=== PATIENT | male | born 1945 | race Caucasian/White ===

== ENCOUNTER → 2016-12-08 | Outpatient (CLI) | payer OTHER ==
[~2016-12-08] MED LIST: ATRV10T; CATHETER FLUSH 10 ML SYR IV PRN; ENLP10T; LNS30CCR; METO50TA7
--- NOTE | 2016-12-08 20:38 | Diagnostic Imaging Report ---
Whole body bone scan. Technique: After the intravenous administration of 25.4 mCi of Technetium 99m MDP, whole body delayed phase bone scan images were obtained with lateral views of the head and neck and the chest regions. INDICATION: Prostate cancer. FINDINGS: There is mild increased radiotracer uptake seen at the junction between T9 and T10 vertebral bodies which may relate to degenerative changes. Minimal focus of increased uptake is seen in the posterolateral aspect of the left 10th rib with no definitive correlate on CT scan of the abdomen and pelvis. No intense lesions particularly within the axial skeleton seen to suggest metastatic disease. Urinary tract excretion is noted. Degenerative pattern in other joints more prominent in the left knee and both shoulders also noted. IMPRESSION: Mild increased activity seen in the lower thoracic spine and posterolateral aspect of the left 10th rib is favored to be degenerative and probably injury related for the rib minimal solitary activity. No definite evidence of osseous metastasis. Followup study is recommended. Dictated by: Dictated on workstation # [id number]
== END ==
LOC: CARD 11:57
PROVIDERS: ATTEND Urology
DX: C61 Malignant neoplasm of prostate (principal)
CPT/HCPCS: 78306

== ENCOUNTER → 2016-12-14 | Outpatient (CLI) | payer OTHER ==
[~2016-12-14] MED LIST changes: -CATHETER FLUSH 10 ML SYR IV PRN; +GADOXETATE 2.5 MMOL/10 ML (EOVIST) IV ONE
--- NOTE | 2016-12-14 12:09 | Diagnostic Imaging Report ---
PROCEDURE: MR imaging abdomen with and without contrast. TECHNIQUE: Multiplanar, multisequence MR imaging of the abdomen was performed with and without contrast. INDICATION: History of prostate cancer. COMPARISON: Correlation with CT from 12/08/2016. Multiple lesions seen on CT scan in the liver. CONTRAST: 7 mL of Eovist is administered intravenously. FINDINGS: There are multiple hepatic lesions with bright T2 signal and lobulated margins seen in the right and left hepatic lobes, generally associated with nonspecific enhancement pattern. These lesions are favored to be related to hemangiomas although the typical enhancement pattern is not demonstrated. The largest lesion is 2.3 cm in size in the lateral aspect of the right hepatic lobe. In the inferior aspect of the lateral segments of the left hepatic lobe, there is a nonenhancing lesion measuring 7 mm in size and is likely a cyst. No intra or extrahepatic biliary dilatation. The gallbladder demonstrates no stones. The pancreas appears unremarkable. The abdominal aorta is normal in caliber. No paraaortic significantly enlarged lymph nodes are seen. The adrenal glands appear unremarkable. The kidneys demonstrate minimally complicated dominant cyst exophytic from the posterior aspect of the left kidney measuring 3 cm with hyperintense debris on precontrast T1-weighted images suggestive of a tiny hemorrhagic or proteinaceous content. The bone marrow signal within the lumbar spine appears unremarkable. IMPRESSION: Multiple hepatic lesions with bright T2 signal and nonspecific enhancement pattern is favored to relate to atypical hemangiomas. Given the atypical appearance and presence of primary history of prostate cancer, followup CT scan in 4-6 months is recommended to ensure stability. Dictated by: Dictated on workstation # [id number]
== END ==
LOC: RAD 09:47
PROVIDERS: ATTEND Urology
DX: K76.9 Liver disease, unspecified (principal); C61 Malignant neoplasm of prostate
CPT/HCPCS: 74183

== ENCOUNTER 2017-02-08 09:02 | Outpatient (CLI) | payer OTHER, MEDICARE ==
[~2017-02-08] VITALS: Ht 172.7 cm; Wt 83.0 kg
[~2017-02-08 09:02] MED LIST changes: -ATRV10T; +ATRV10T PO; -GADOXETATE 2.5 MMOL/10 ML (EOVIST) IV ONE; -LNS30CCR; +LNS30CCR PO; -METO50TA7; +METO50TA7 PO
[2017-02-08 09:17] VITALS: BP 132/78
[2017-02-08] MEDS ORDERED: NAPR500T8 PO (09:33)
[2017-02-08] MEDS ORDERED: AMLO5TAB2 PO (10:31)
[2017-02-08] MEDS ORDERED: IRBE300T18 PO (10:31)
[2017-02-08] MEDS ORDERED: METF500T4 PO (10:31)
[2017-02-08] MEDS ORDERED: HYDR12.56 PO (10:31)
== END 2017-02-08 09:50 | disposition home or self-care (01) ==
LOC: PREOP 09:02
PROVIDERS: ATTEND Urology
DX: Z01.818 Encounter for other preprocedural examination (principal); C61 Malignant neoplasm of prostate
CPT/HCPCS: 87081; 93005

== ENCOUNTER 2017-02-15 06:17 | Inpatient (IN) | payer OTHER, MEDICARE ==
[~2017-02-15] VITALS: Ht 172.7 cm; Wt 83.0 kg
[~2017-02-15 06:17] MED LIST changes: +AMLO5TAB2 PO; +HYDR12.56 PO; +IRBE300T18 PO; +METF500T4 PO; +NAPR500T8 PO
[2017-02-15] MEDS ORDERED: ceFAZolin 2 GM/50 ML NS 50 ML ONE (06:20)
[2017-02-15] MEDS ORDERED: CATHETER FLUSH 10 ML SYR IV PRN (06:30)
[2017-02-15] MEDS ORDERED: ceFAZolin 2 GM/NS 50 ML IV ONE (06:30)
[2017-02-15] MEDS ORDERED: proPOfol 200 MG/20 ML (DIPRIVAN) VIAL IV ONE (06:39)
[2017-02-15] MEDS ORDERED: DEXAMETHASONE PF 10 MG/ML (DECADRON) VIAL ONE (06:39)
[2017-02-15] MEDS ORDERED: ROCURONIUM 50 MG/5 ML (ZEMURON) VIAL IV ONE ×3 (06:39→11:37)
[2017-02-15] MEDS ORDERED: LIDOCAINE 2% 20 ML (XYLOCAINE) VIAL ONE (06:39)
[2017-02-15] MEDS ORDERED: LACTATED RINGERS 1,000 ML IV ONE (06:39)
[2017-02-15] MEDS ORDERED: ONDANSETRON 4 MG/2 ML (SDV) Z0FRAN ONE (06:39)
[2017-02-15] MEDS ORDERED: SEVOFLURANE (ULTANE) 15 ML INHAL SOLN ONE ×18 (06:39→11:37)
[2017-02-15] MEDS ORDERED: fentaNYL INJECTION 100 MCG/2 ML AMP ONE ×3 (06:39→11:58)
[2017-02-15] MEDS ORDERED: MIDAZOLAM 2 MG/2 ML (VERSED) VIAL ONE (06:39)
[2017-02-15] MEDS ORDERED: LACTATED RINGERS 1,000 ML IV PRN (06:46)
[2017-02-15 07:05] VITALS: BP 133/84
[2017-02-15] MEDS ORDERED: ceFAZolin 1,000 MG (ANCEF) VIAL ONE (11:43)
[2017-02-15] MEDS ORDERED: GLYCOPYRROLATE 0.2 MG/ML (ROBINUL) 2 ML VIAL ONE (11:44)
[2017-02-15] MEDS ORDERED: NEOSTIGMINE (BLOXIVERZ ) 1 MG/1ML 10 ML VIAL ONE (11:44)
[2017-02-15] MEDS ORDERED: ceFAZolin 1,000 MG (ANCEF) VIAL IV ONE (12:00)
[2017-02-15] MEDS ORDERED: ANTACID SUSP 30 ML UDC (MYLANTA) PO PRN (12:15)
[2017-02-15] MEDS ORDERED: ONDANSETRON 4 MG/2 ML (SDV) Z0FRAN IV PRN (12:15)
[2017-02-15] MEDS ORDERED: HYDROcodone/APAP 7.5 MG/325 MG (LORTAB, LORCET PLUS) TABLET PO PRN (12:15)
[2017-02-15] MEDS ORDERED: SIMETHICONE 80 MG (MYLICON) CHEW PO PRN (12:15)
[2017-02-15] MEDS ORDERED: DOCUSATE SODIUM 100 MG (COLACE) CAP PO PRN (12:15)
[2017-02-15] MEDS ORDERED: ZOLPIDEM 5 MG (AMBIEN) TAB PO PRN (12:15)
[2017-02-15] MEDS ORDERED: KETOROLAC 30 MG/ML VIAL IV PRN (12:15)
[2017-02-15] MEDS ORDERED: morphine INJ 10 MG/ML 1ML (SYR OR VIAL) IVP PRN (12:30)
[2017-02-15] MEDS ORDERED: HYDROmorphone (DILAUDID) 2 MG/ML VIAL IVP PRN (12:30)
[2017-02-15] MEDS ORDERED: ONDANSETRON 4 MG/2 ML (SDV) Z0FRAN IVP PRN (12:30)
[2017-02-15] MEDS: LACTATED RINGERS 1,000 ML IV SCH ×2 (12:38→15:35)
[2017-02-15 13:20] VITALS: BP 175/92
[2017-02-15] MEDS ORDERED: ASPI-983 PO (14:13)
[2017-02-15] MEDS ORDERED: ERGO50006 PO (14:13)
[2017-02-15] MEDS ORDERED: HYDR-3812 PO (14:13)
[2017-02-15] MEDS ORDERED: NAPR500T3 PO (14:13)
[2017-02-15] MEDS ORDERED: ATOR10TA66 PO (14:13)
[2017-02-15] MEDS ORDERED: HYDR12.5 PO (14:13)
[2017-02-15 16:00] VITALS: BP 145/79
[2017-02-15 20:00] VITALS: BP 139/79
[2017-02-16 00:35] VITALS: BP 120/67
[2017-02-16] MEDS: LACTATED RINGERS 1,000 ML IV SCH (03:31)
[2017-02-16 03:50] VITALS: BP 117/66
[2017-02-16] MEDS ORDERED: IBUPROFEN 600 MG (MOTRIN) TAB PO PRN (05:00)
[2017-02-16 07:34] VITALS: BP 130/70
--- NOTE | 2017-02-16 10:31 | Discharge Inst-Urology ---
Discharge Inst-Urology Discharge Medications New, Converted, or Re-newed RX: RX given to Patient/Fam Patient Instructions/Follow Up Plan DC hemovac then discharge patient with Bryant and leg bag day time and large bag night time with instructions Keep bowels soft and moving Stay off ASA Showers, no bath Office Tuesday 02/27 to DC bryant and 2 weeks later to see me, rest till then OTC Neosporin ointment around meatus and bryant once or twice a day Increase oral fluids for 48 hours and then as needed. Diet and Activity as tolerated. If questions or concerns contact your physician Or seek help at emergency department. ODALYS STEELE MD Feb 16, 2017 10:30 am
--- NOTE | 2017-02-16 16:11 | OPERATIVE REPORT ---
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 PREOPERATIVE DIAGNOSIS: Stage T1c [place] 8, 9 and 10 adenocarcinoma of the prostate. PROCEDURE: Robot assisted laparoscopic prostatectomy with a left sided nerve spearing and right sided wide dissection and a bilateral pelvic lymph node dissection. SURGEON: Dr. Melania Roach FLOWER GRADER SURGEON: El (s/l Panfilly) ANESTHESIA: General endotracheal anesthesia. SPECIMENS: 1. Prostate. 2. Seminal vesicles. 3. Right pelvic lymph nodes. INDICATIONS TO THE OPERATIVE PROCEDURE: Mr. Denise is a very pleasant 71 year-old gentleman referred by Dr. France for prostate cancer. He had been followed by quite some time for hypogonadism with Dr. France and was found to have an elevated PSA of 6.9 at which time he underwent a biopsy. That revealed a [place] 8, 9 and 10 prostate cancer all on the right, for a total of 6 cores positive. Left side was all negative. I had a long counseling with he and his and told him that staging showed that his CT scan and bone scan were negative. The man has mild erectile dysfunction and does not require PD5 inhibitors and he wanted to have a unilateral nerve sparing done. We went through the risks and benefits, advantages and disadvantages and he signed and informed consent. DESCRIPTION: After this man was prepped and draped in the usual sterile fashion, placed in the low lithotomy position, padded throughout on his elbows, hands and legs and had SCDs applied and IV antibiotics administered. We placed an 18 [place] tip catheter with 2-0 Vicryl tied on the end of it into his bladder. We then marked out our port sites in the usual fashion lifting up from the abdominal wall with towel clamps on either side of the supraumbilical region, made a small punch in the midline and introduced a Veress needle into the abdomen. After ensuring we were intraperitoneal using a drip test, we completed insufflation with 15 cm of pressure and then extended our incision in the midline and placed a nonbladed 10/12 mm trocar into the abdomen. Through this port, we examined the intraabdominal contents and I found adhesions which were quite significant from his cecum and from his sigmoid area and that appeared to be from his diverticular disease of the colon. After I placed the rest of the trocars in the usual fashion, I put him in a steep Trendelenburg position and docked the robot. I started with scissors in my left hand and the right hand with the precise instrument, taking down adhesions for about the first 14 to 15 minutes. I then went across the ____ (s/l urakial) rim and followed the medial umbilical ligaments back to the vas deferens. I harvested a piece of the vas deferens to bolster the bladder neck anastomosis. I then did a lymph node dissection only on the right side simply because this gentleman had had no cancer on the left. I split the tissue of the external iliac vein down to the pubic symphysis and back up to the crossing of the ureter. This man was thin and had very little lymph node tissue. I looked all up and down the hypogastric area under the obturator all the way up to the common iliac and really only found one packet of amrit tissue which I took out and used cautery to cauterize the small vessels and lymphatics and sent those off for frozen section and returned as negative. I did note that he had a direct inguinal hernia on the right hand side that I told the family about incase he became symptomatic in any way. They stated he was not symptomatic prior to the operation and never told us that he was. I verified that the nerve vessels were uninjured and the final pathology came back on frozen section, is negative. I then incised the endopelvic fascia and took down puboprostatic ligaments and used the endovascular stapler to staple across the dorsal venous complex. I then switched to a 30 degree down orientation of the lens and opened up between the base of the prostate and the bladder neck and once I saw the Olivier catheter, I used a Jovon-Stevenson to lift up on the Vicryl suture and put the Olivier catheter on penile traction. I then went across the posterior bladder neck to ensure the ureters were uninjured and completed the prostate from the base of the bladder. In doing so, I then exposed the seminal vesicles and ampulla. I dissected out the entire seminal vesicles bilaterally and transected the vas deferens 1 cm proximal to their junction with the prostate. I incised an fascia on the right hand side down to perirectal fat and dropped the rectum off all the way to the apex of the prostate and really encountered some adhesions but it was not very stuck to the rectum. On the contralateral side I used a hemolock clip to clip the vascular pedicle and then transect it and then did released the Olivier catheter and did a high anterior release on the endopelvic fascia, dissected off the intravascular veil from the anterior surface of the prostate all the way to the 6:00 position on the underside. Once I reached the apex of the prostate, I went to the contralateral side and on that vascular pedicle we used an endovascular stapler to staple the lateral pedicle and that took us about midway up the prostate at which time I continued to dissect down on the perirectal fat all the way to the apex of the prostate. So we did a very wide dissection on the right and on the left we did a nerve sparing. Once I had reached the apex, I switched back to a 0 degree lens. I then replaced the Olivier catheter I had recently taken out and did a circumferential dissection of the apex and the prostate making sure that I dissected out the longest urethral stump possible. I then removed the Olivier catheter, transected the urethra, inspected the prostate, found that we had a very clean dissection, no evidence of entrance into the capsule. The prostate was then placed in an endocatch bag for later removal. I then irrigated the pelvis and saw no significant bleeding. Introduced into the abdomen two 8 1/2 inch pieces of 2-0 Monocryl tied together and sutured across the piece of the vas deferens. Starting at the 6:00 position of the bladder neck and suturing the same position on the urethral stump, I did a running suture on the left 6-12 blue suture and on the right 6-12 clear suture. I then transition my stitch across the bladder neck and the 12:00 position prior to finishing the running suture. Removed both needles from the abdomen, ensured we had an accurate sponge and needle count and then finished my sewing with a number 20 Mont[place]gr[place] Silastic catheter with 10 mL placed in the balloon. I then tied the sutures water tight, irrigated the bladder until clear and saw no leak. I then moved the endocatch bag in the midline for later removal. Placed a 19 Mont[place]gr[place] Eric drain next to the anastomosis and brought it out the 3rd arm site in the left lower quadrant and sutured it in place with a 2-0 Silk interrupted suture. We undocked the robot and removed all port sites, extended our incision in the midline and removed the prostate. I grasped the anterior rectus fascia, closed with 4 sutures of interrupted number 1 Vicryl in a figure of eight fashion. After ensuring we did not grab any bowel underneath we tied down the abdominal wall sutures water tight, irrigated all wounds and closed the skin using four 4-0 undyed Monocryl in a running subcuticular fashion. I placed Dermabond on all wounds, extubated the patient, transporting him to recovery in excellent condition. Blood loss was 150 mL. Job ID: [id number] Dictated Date: 02/15/2017 12:22:34 Financial Services Internship Date: 02/16/2017 13:51:31 / sunny
== END 2017-02-16 11:15 | disposition home or self-care (01) | DRG 708 ==
LOC: 4TH 06:17 → SURG 06:18 → 4TH 13:25
PROVIDERS: ADMIT Urology; ATTEND Urology
PROC: 07TC4ZZ Resection of Pelvis Lymphatic, Percutaneous Endoscopic Approach (ICD-10-PCS; 2017-02-15)
PROC: 0VT04ZZ Resection of Prostate, Percutaneous Endoscopic Approach (ICD-10-PCS; principal; 2017-02-15 07:34)
DX: C61 Malignant neoplasm of prostate (principal); E29.1 Testicular hypofunction; I10 Essential (primary) hypertension; E11.9 Type 2 diabetes mellitus without complications
CPT/HCPCS: 36415; 82962; 86850; 86900; 86901; 94664

== ENCOUNTER → 2017-05-08 | Outpatient (CLI) | payer MEDICARE, OTHER ==
[~2017-05-08] MED LIST changes: +ASPI-983 PO; +ATOR10TA66 PO; +BARIUM SUSPENSION 2.1% (VANILLA SILQ) 450 ML PO ONE; +CATHETER FLUSH 10 ML SYR IV PRN; +ERGO50006 PO; +HYDR-3812 PO; +HYDR12.5 PO; +IOHEXOL 350 MG/ML 100 ML (OMNIPAQUE 350) VIAL IV ONE; +NAPR500T3 PO; +NS 100 ML (IVPB) BAG IV ONE
--- NOTE | 2017-05-08 16:59 | Diagnostic Imaging Report ---
PROCEDURE: CT abdomen and pelvis with and without contrast. TECHNIQUE: Precontrast acquisitions were acquired through the abdomen and pelvis. Multiple contiguous axial images were obtained through the abdomen and pelvis after the administration of intravenous contrast. INDICATION: Abdominal pain. History of prostate cancer. Status post surgical resection. 100 mL of Omnipaque 350 is administered intravenously. FINDINGS: The lung bases appear clear. Again seen are multiple hyperenhancing lesions in the liver up to 2.1 cm in the right hepatic lobe inferiorly. This is similar to previous exam of 12/08/2016 with no definite change. As previously indicated on CT and MRI from December, these might relate to hemangiomas. The gallbladder, the spleen, the pancreas, and the adrenal glands appear unremarkable. The kidneys have symmetric enhancement and contrast excretion. Multiple simple appearing cysts are seen. The unenhanced phase demonstrates no urinary tract stones. Calcifications in the pelvis appear to relate to phleboliths. There is evidence of interval prostatectomy. The abdominal aorta is normal in caliber. No para-aortic significantly enlarged lymph node is seen. There is a fluid-attenuation lesion measuring 2.1 x 1.9 cm in the right side of the pelvis along the right external iliac chain. This demonstrates no definite enhancement and is not associated with other lesions along the iliac chain. Postoperative seroma versus necrotic lymph node are possibilities. There is prominent diverticulosis. No diverticulitis. No significant free fluid or fluid collection in the abdomen or pelvis is seen. Tiny fat-containing umbilical hernia is seen. The osseous structures demonstrate prominent degenerative changes in the lower thoracic and in the lower lumbar spine. No sclerotic suspicious lesions are seen to suggest metastatic disease. IMPRESSION: 1. Multiple liver hyperenhancing lesions seen without change from December 2016 are favored to be related to hemangiomas. Continued followup recommended. 2. There is interval prostatectomy. 3. A 2 cm fluid-attenuation lesion in the right side of the pelvis at external iliac lymph node chain location. This could relate to a seroma, based on its density rather than a necrotic lymph node. Correlate clinically and with followup exams. 4. Diverticulosis. No diverticulitis. Dictated by: Dictated on workstation # [id number]
== END ==
LOC: RAD 15:20
PROVIDERS: ATTEND Urology
DX: K76.9 Liver disease, unspecified (principal); K57.30 Diverticulosis of large intestine without perforation or abscess without bleeding; Z90.79 Acquired absence of other genital organ(s)
CPT/HCPCS: 74178

== ENCOUNTER 2017-07-27 08:17 | Outpatient (RCR) | payer MEDICARE, OTHER ==
[~2017-07-27 08:17] MED LIST changes: +ACHD5005 PO; -BARIUM SUSPENSION 2.1% (VANILLA SILQ) 450 ML PO ONE; -CATHETER FLUSH 10 ML SYR IV PRN; -HYDR-3812 PO; -IOHEXOL 350 MG/ML 100 ML (OMNIPAQUE 350) VIAL IV ONE; -NAPR500T3 PO; +NAPR500T4 PO; -NS 100 ML (IVPB) BAG IV ONE
== END 2017-08-06 | disposition home or self-care (01) ==
PROVIDERS: ATTEND Orthopaedic Surgery
DX: Z47.1 Aftercare following joint replacement surgery (principal); Z96.652 Presence of left artificial knee joint

== ENCOUNTER 2017-08-09 08:08 | Outpatient (RCR) | payer MEDICARE, OTHER | END 2017-08-22 11:07 | disposition home or self-care (01) | PROVIDERS: ATTEND Orthopaedic Surgery | DX: Z47.1 Aftercare following joint replacement surgery (principal); Z96.652 Presence of left artificial knee joint ==

== ENCOUNTER 2018-02-28 05:36 | Outpatient (CLI) | payer MEDICARE, OTHER ==
[~2018-02-28] VITALS: Ht 172.7 cm; Wt 80.3 kg
[~2018-02-28 05:36] MED LIST changes: -METF500T4 PO; +METF500T5 PO; +NAPR-915 PO; -NAPR500T4 PO
[2018-02-28] MEDS ORDERED: LANS30CA PO (14:02)
[2018-02-28] MEDS ORDERED: METO-370 PO (14:02)
== END 2018-02-28 14:04 ==
LOC: PREOP 05:36
PROVIDERS: ATTEND Surgery
DX: Z01.818 Encounter for other preprocedural examination (principal); Z12.11 Encounter for screening for malignant neoplasm of colon; K21.9 Gastro-esophageal reflux disease without esophagitis

== ENCOUNTER 2018-03-07 09:30 | Day surgery (SDC) | payer MEDICARE, OTHER ==
[~2018-03-07] VITALS: Ht 172.7 cm; Wt 80.3 kg
[2018-03-07 09:30] VITALS: BP 132/73
[~2018-03-07 09:30] MED LIST changes: +LANS30CA PO; +METO-370 PO
[2018-03-07] MEDS ORDERED: LACTATED RINGERS 1,000 ML IV ONE (09:34)
[2018-03-07] MEDS ORDERED: fentaNYL INJECTION 100 MCG/2 ML AMP ONE ×2 (09:59)
[2018-03-07] MEDS ORDERED: HURRICAINE EXT TUBE (BENZOCAINE) XX PRN (10:00)
[2018-03-07] MEDS ORDERED: LIDOCAINE JELLY 2% (XYLOCAINE) 5 ML TUBE MM PRN (10:00)
[2018-03-07] MEDS ORDERED: MIDAZOLAM 2 MG/2 ML (VERSED) VIAL ONE ×4 (10:00)
[2018-03-07] MEDS: fentaNYL INJECTION 100 MCG/2 ML AMP IVP PRN ×4 (10:05→10:50)
--- NOTE | 2018-03-07 10:06 | Conscious Sedation/ASA ---
Conscious Sedation Pre-Proced Time Reviewed: 09:30 ASA Class: 2 Airway Mallampati Classification: ([place] cliff appropriate class) I. II. III, IV Lungs Heart ASA score ASA 1: a normal healthy patient ASA 2: a patient with a mild systemic disease (mid diabetes, controlled hypertension, obesity ASA 3: a patient with a severe systemic disease that limits activity (angina , COPD, prior Myocardial infarction) ASA 4: a patient with an incapacitating disease that is a constant threat to life (CHF, renal failure) ASA 5: a moribund patient not expected to survive 24 hrs. (ruptured aneurysm) ASA 6: a declared brain patient whose organs are being harvested. For emergent operations, add the letter E after the classification Grade 2 Sedation Plan: Analgesia, Amnesia, Plan communicated to team members, Discussed options with patient/fam, Discussed risks with patient/fam Note The patient is an appropriate candidate to undergo the planned procedure, sedation, and anesthesia. The patient immediately re-assessed prior to indication. LUIS SIMON MD Mar 07, 2018 10:06 am
--- NOTE | 2018-03-07 10:06 | Progress Note-Pre Operative ---
Pre-Operative Progress Note H&P Reviewed The H&P was reviewed, patient examined and no changes noted. Date Seen by Provider: Mar 07, 2018 Time Seen by Provider: :30 Date H&P Reviewed: Mar 07, 2018 Time H&P Reviewed: :30 Pre-Operative Diagnosis: GERD, screening colonoscopy LUIS SIMON MD Mar 07, 2018 10:06 am
[2018-03-07] MEDS ORDERED: LACTATED RINGERS 1,000 ML IV STA (10:09)
[2018-03-07] MEDS: MIDAZOLAM 2 MG/2 ML (VERSED) VIAL IVP PRN ×4 (10:09→10:46)
[2018-03-07] MEDS ORDERED: HYDROcodone/APAP 5 MG/325 MG (LORTAB) TAB PO PRN (10:15)
[2018-03-07] MEDS ORDERED: ACETAMINOPHEN 325 MG TABLET PO PRN (10:15)
[2018-03-07] MEDS ORDERED: morphine INJ 10 MG/ML 1ML (SYR OR VIAL) IV PRN (10:15)
[2018-03-07] MEDS ORDERED: ONDANSETRON 4 MG/2 ML (SDV) Z0FRAN IV PRN (10:15)
--- NOTE | 2018-03-07 11:13 | Progress Note-Post Operative ---
Post-Operative Progess Note Surgeon (s)/Bill Board Poster (s) Surgeon LUIS SIMON MD Bill Board Poster: none Pre-Operative Diagnosis GERD, screening colonoscopy Post-Operative Diagnosis reflux esophagitis(class B), small HH(1.5cm), multiple small gastric fundic polyps(1-3mm). chronic stage 2 ext and int hemorrhoid, moderate sigmoid diverticulosis. Procedure & Operative Findings Date of Procedure 03/07/18 Procedure Performed/Findings EGD with bx. Colonoscopy. Anesthesia Type CS Estimated Blood Loss Estimated blood loss (mL): minimal Specimens/Packing Specimens Removed GE jxn, fundic polyp LUSI SIMON MD Mar 07, 2018 11:13 am
[2018-03-07] MEDS ORDERED: SUCR1TAB36 PO (11:14)
[2018-03-07] MEDS ORDERED: PANT40TA2 PO (11:14)
--- NOTE | 2018-03-07 11:15 | Discharge Inst-Surgical ---
D/C Lap Instructions-KIDO New, Converted, or Re-Newed RX: RX on Chart Follow Up Appt in 3 years Activity as tolerated High Fiber Diet 25g or more per day Avoid Alcohol, Caffeine, Spicy [place] and Acid foods. Drink 64 fluid oz or more of fluids per day. Symptoms to Report: Fever over 101 degree F, Nausea/Vomiting If any problems/questions: Contact your physician or go to Emergency Room LUIS SIMON MD Mar 07, 2018 11:15 am
[2018-03-07 11:30] VITALS: BP 109/65
[2018-03-07 12:00] VITALS: BP 105/71
[2018-03-07 12:30] VITALS: BP 105/71
[2018-03-07 12:45] VITALS: BP 105/71
--- NOTE | 2018-03-07 13:13 | OPERATIVE REPORT ---
DATE OF SERVICE: 03/07/2018 ATTENDING PRIMARY CARE PHYSICIAN: Dr. Powers. PREOPERATIVE DIAGNOSIS: Gastroesophageal reflux disease, screening colonoscopy. POSTOPERATIVE DIAGNOSES: Reflux esophagitis class B, small hiatal hernia approximately 1.5 cm in size. Multiple small fundic polyps none greater than 2 to 3 mm. Chronic stage II external and internal hemorrhoids, moderate sigmoid diverticulosis. PROCEDURES: EGD with biopsy and colonoscopy. SURGEON: Luis Simon MD. ANESTHESIA: Conscious sedation. ESTIMATED BLOOD LOSS: Minimal. FINDINGS: EGD: Reflux esophagitis class B, small hiatal hernia approximately 1.5 cm in size. Multiple small fundic gastric polyps none greater than 3 mm in size. These appear to be most likely secondary to a proton pump inhibitor, acid reduction medication long-term. No ulcers. Pylorus and duodenum appeared normal. No distal obstructions. Colonoscopy: Chronic stage II external and internal hemorrhoids, not actively edematous nor inflamed and no bleeding. Moderate sigmoid diverticulosis. DISPOSITION: The patient tolerated the procedure well. INDICATIONS: The patient is a 72-year-old male with a history of gastroesophageal reflux disease as well as a need for a screening colonoscopy. His last colonoscopy was approximately 10 years ago and he believes that to be normal. He does not report any major issues with diarrhea nor constipation as well as no abdominal pain. He also does not report any family history of colon cancer. He does report for the past 8 to 10 weeks, he has had epigastric burning sensation despite being on Prevacid. He does not report any nausea, vomiting. DESCRIPTION OF PROCEDURE: The patient was brought to the endoscopy suite, laid in the left lateral decubitus position. After adequate IV pain and sedative medications and conscious sedation anesthesia, the mouthpiece was applied. The endoscope was placed through the mouth, visualizing the pharynx and hypopharyngeal region. Vocal cords, epiglottis and vallecula identified and appeared to be normal. The endoscope was then gently intubated at the esophageal opening and esophagus insufflated. The endoscope was then advanced through the first, second and third portion of esophagus at the level of the GE junction, a reflux esophagitis class B identified. There were no ulcers or strictures identified in this region. A biopsy was taken with forceps with visualization of good hemostasis. The endoscope was then advanced into the stomach and endoscope retroflexed visualizing a small hiatal hernia approximately 1.5 cm in size. There were multiple gastric fundic polyps, which were flat and varying in size, approximately 2 to 3 mm; however, none greater than 3 mm. Multiple biopsies were taken of the polyps. These appear to be secondary to chronic PPI acid police reserves commander use. The antrum of the stomach appeared normal with no ulcerations. Pylorus and duodenum appeared normal with no distal obstructions. The endoscope was then slowly withdrawn while taking a second look and suctioning the residual air with no additional findings. The patient tolerated the procedure well. We will recommend the necessary lifestyle and diet accommodation including small and more frequent meals, avoidance of eating at night as well as head elevation while lying supine. He has been taking Prevacid and it appears that he does need this medication for symptomatic relief. We will proceed with a trial of Protonix coupled with Carafate and hopefully if he does become asymptomatic, we will recommend weaning off the PPI acid reducers. We will also await the biopsy results. Under the same conscious sedation anesthesia, we then proceeded with colonoscopy portion of the procedure. A digital rectal examination was performed, which revealed chronic stage II external and internal hemorrhoids, not actively edematous nor inflamed with no bleeding. Normal sphincter tone was felt and there were no palpable masses. Prostate gland was palpable and appeared normal. The endoscope was then intubated in the anus and rectum and gently insufflated. The endoscope was then advanced to the valves of Diez at the rectum with no polyps or any neoplasms identified. The endoscope was then advanced through the sigmoid colon where a moderate sigmoid diverticulosis identified. There were no mucosal inflammatory changes to indicate any active diverticulitis. The endoscope was then advanced to the remainder of the descending, transverse and ascending colon to the cecum. These segments were normal. There were no polyps or any neoplasms identified throughout the colon or rectum. The endoscope was then slowly withdrawn while taking a second look and suctioning the residual air with no additional findings. The patient tolerated this portion of the procedure well. We will recommend a high-fiber diet with at least 30 grams of fiber per day as well as copious amounts of water to promote soft stools on a daily basis. He does not need another colonoscopy for another 10 years; however, sooner if he becomes symptomatic. Job ID: [id number] DocumentID: [id number] Dictated Date: 03/07/2018 11:07:17 Parachute Repairer Date: 03/07/2018 13:13:27 Dictated By: LUIS SIMON MD
== END 2018-03-07 12:45 | disposition home or self-care (01) ==
LOC: ENDO 09:30
PROVIDERS: ATTEND Surgery
DX: Z12.11 Encounter for screening for malignant neoplasm of colon (principal); K21.0 Gastro-esophageal reflux disease with esophagitis; K44.9 Diaphragmatic hernia without obstruction or gangrene; K31.7 Polyp of stomach and duodenum; K57.30 Diverticulosis of large intestine without perforation or abscess without bleeding; K64.1 Second degree hemorrhoids; E11.9 Type 2 diabetes mellitus without complications; I10 Essential (primary) hypertension; E78.00 Pure hypercholesterolemia, unspecified; N32.81 Overactive bladder; Z85.46 Personal history of malignant neoplasm of prostate; Z79.899 Other long term (current) drug therapy; Z79.84 Long term (current) use of oral hypoglycemic drugs
CPT/HCPCS: 43239; G0121; 82962

== ENCOUNTER → 2018-09-07 | Outpatient (CLI) | payer MEDICARE, OTHER ==
[~2018-09-07] MED LIST changes: -AMLO5TAB2 PO; +AMLO5TAB9 PO; +METF-397 PO; -METF500T5 PO; +PANT40TA2 PO; +SUCR1TAB36 PO
--- NOTE | 2018-09-07 08:31 | Diagnostic Imaging Report ---
PROCEDURE: CT abdomen and pelvis without contrast. TECHNIQUE: Multiple contiguous axial images were obtained through the abdomen and pelvis without the use of intravenous contrast. INDICATION: Gross hematuria. Comparison made with prior examination 05/08/2017. FINDINGS: Heart size is normal. There is a small hiatal hernia. Lung bases are clear. The liver is normal in size without focal lesions. Gallbladder is contracted. There is no biliary ductal dilatation. Spleen is normal. The pancreas and adrenal glands are unremarkable. Left renal cyst which is unchanged. There is no evidence of nephrolithiasis or obstructive uropathy. Bladder is relatively decompressed. The aorta is nonaneurysmal. The bowel gas pattern is nonspecific. There is diverticular disease without evidence of diverticulitis. There is no pelvic mass or adenopathy. There are degenerative changes in the spine. IMPRESSION: Diverticular disease without evidence of diverticulitis. Left renal cyst, however no evidence of nephrolithiasis or obstructive uropathy. Small hiatal hernia. No other acute abnormality in the abdomen or pelvis. Dictated by: Dictated on workstation # [id number]
== END ==
LOC: RAD 07:47
PROVIDERS: ATTEND Urology
DX: K44.9 Diaphragmatic hernia without obstruction or gangrene (principal); N28.1 Cyst of kidney, acquired; K57.90 Diverticulosis of intestine, part unspecified, without perforation or abscess without bleeding
CPT/HCPCS: 74176

== ENCOUNTER 2020-06-27 10:40 | Emergency (ER) | payer MEDICARE, OTHER ==
[~2020-06-27] VITALS: Ht 172 cm; Wt 82.0 kg
[~2020-06-27 10:40] MED LIST changes: +AMLO-250 PO; -AMLO5TAB9 PO; +ASPI-1238 PO; -ASPI-983 PO; +IRBE300T17 PO; -IRBE300T18 PO; -METO-370 PO
[2020-06-27] MEDS ORDERED: LIDOCAINE 1% INJ 20 ML 20 ML VIAL ONE (10:54)
[2020-06-27] MEDS ORDERED: LIDOCAINE 2% 20 ML (XYLOCAINE) VIAL INJ ONE (11:00)
[2020-06-27] MEDS ORDERED: TETANUS,DIPTH,PERTUSS P/F (BOOSTRIX) 0.5 ML VIAL IM ONE (11:00)
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
[2020-06-27] MEDS ORDERED: ACHD5005 PO (11:40)
[2020-06-27] MEDS ORDERED: CEPH500T PO (11:40)
[2020-06-27] MEDS ORDERED: ONDA4TAB11 PO (11:40)
[2020-06-27] MEDS ORDERED: HYDROcodone/APAP 5 MG/325 MG (LORTAB) TAB ONE (11:42)
[2020-06-27] MEDS ORDERED: HYDROcodone/APAP 5 MG/325 MG (LORTAB) TAB PO ONE (11:45)
--- NOTE | 2020-06-27 11:46 | Diagnostic Imaging Report ---
EXAMINATION: Left second finger radiographs, 3 views. COMPARISON: None. HISTORY: 74-year-old male, table saw injury. FINDINGS: There is a comminuted displaced fracture of the second distal phalanx. There is no identified radiopaque foreign body. There is no fracture involvement of the articulating surface. IMPRESSION: 1. Comminuted displaced fracture of the second distal phalanx. 2. No identified radiopaque foreign body. Dictated by: Dictated on workstation # [id number]
[2020-06-27 11:49] VITALS: BP 161/83
== END 2020-06-27 11:48 | disposition home or self-care (01) ==
LOC: EDUNIT# 10:41 → ER 10:43
DX: S61.311A Laceration without foreign body of left index finger with damage to nail, initial encounter (principal); I10 Essential (primary) hypertension; Z23 Encounter for immunization; Z85.46 Personal history of malignant neoplasm of prostate; W22.8XXA Striking against or struck by other objects, initial encounter
CPT/HCPCS: 12042; 73140; 90715

== ENCOUNTER 2020-09-11 08:50 | Outpatient (RCR) | payer MEDICARE, OTHER ==
[~2020-09-11 08:50] MED LIST changes: +CEPH500T PO; +ONDA4TAB11 PO
== END 2020-10-12 | disposition home or self-care (01) ==
PROVIDERS: ATTEND Orthopaedic Surgery
DX: M54.2 Cervicalgia (principal)

== ENCOUNTER 2021-03-04 09:00 | Outpatient (RCR) | payer MEDICARE, OTHER | END 2021-03-18 | disposition home or self-care (01) | PROVIDERS: ATTEND Orthopaedic Surgery | DX: M54.2 Cervicalgia (principal) ==

== ENCOUNTER → 2021-03-25 | Outpatient (CLI) | payer MEDICARE, OTHER ==
[~2021-03-25] MED LIST changes: +HOLD METFORMIN - RECEIVED CONTRAST 20 ML VIAL IV SCH; +IOHEXOL 350 MG/ML 100 ML (OMNIPAQUE 350) VIAL IV ONE
--- NOTE | 2021-03-25 18:38 | Diagnostic Imaging Report ---
INDICATION: Chronic sinusitis. TECHNIQUE: Multiple contiguous axial images were obtained through the sinuses without the use of intravenous contrast. FINDINGS: The frontal, ethmoid, sphenoid and maxillary sinuses are clear. Mastoid air cells are clear. The ostiomeatal complexes are patent. There are no alcides bullosa. Globes and intraorbital structures are unremarkable. Nasopharyngeal soft tissues are symmetrical without mass effect. Parotid glands are unremarkable. IMPRESSION: Unremarkable CT sinus. Dictated by: Dictated on workstation # [id number]
== END ==
LOC: RAD 15:33
PROVIDERS: ATTEND Family Medicine
DX: J32.8 Other chronic sinusitis (principal); L57.0 Actinic keratosis
CPT/HCPCS: 70487

== ENCOUNTER → 2021-05-04 | Outpatient (CLI) | payer MEDICARE, OTHER ==
[~2021-05-04] MED LIST changes: -HOLD METFORMIN - RECEIVED CONTRAST 20 ML VIAL IV SCH; -IOHEXOL 350 MG/ML 100 ML (OMNIPAQUE 350) VIAL IV ONE
--- NOTE | 2021-05-04 14:58 | Diagnostic Imaging Report ---
PROCEDURE: MR imaging of the brain without contrast. TECHNIQUE: Multiplanar, multisequence MR imaging of the brain was performed without contrast. INDICATION: Forehead pain. COMPARISON: No prior studies are available for comparison. FINDINGS: Ventricles and sulci are prominent, consistent with the patient's age. There are significant periventricular and subcortical white matter signal abnormalities noted, consistent with chronic microvascular ischemia. No diffusion restriction is identified to suggest acute ischemia. The normal expected flow-voids within the carotid siphons are seen. No acute intra-axial or extra-axial hemorrhage is detected. Corpus callosum is unremarkable. The sella and parasellar structures are unremarkable. IMPRESSION: Changes of chronic microvascular ischemia. No acute intracranial process is detected. Dictated by: Dictated on workstation # [id number]
== END ==
LOC: RAD 12:59
PROVIDERS: ATTEND Nurse Practitioner Family
DX: I67.82 Cerebral ischemia (principal); D72.829 Elevated white blood cell count, unspecified; G58.8 Other specified mononeuropathies
CPT/HCPCS: 70551

== ENCOUNTER 2022-12-16 05:33 | Outpatient (CLI) | payer MEDICARE, OTHER ==
[~2022-12-16] VITALS: Ht 172.7 cm; Wt 85.5 kg
[2022-12-20] MEDS ORDERED: DENO60DI SQ (13:38)
[2022-12-20] MEDS ORDERED: LISI30TA5 PO (13:38)
[2022-12-20] MEDS ORDERED: METF-399 PO (13:38)
[2022-12-20] MEDS ORDERED: ASPI-999 PO (13:38)
[2022-12-20] MEDS ORDERED: ACHD5005 PO (13:39)
== END 2022-12-20 13:39 | disposition home or self-care (01) ==
LOC: PREOP 05:33
PROVIDERS: ATTEND Surgery
DX: Z01.818 Encounter for other preprocedural examination (principal); I87.2 Venous insufficiency (chronic) (peripheral)

== ENCOUNTER 2022-12-23 10:01 | Emergency (ER) | payer MEDICARE, OTHER ==
[~2022-12-23] VITALS: Ht 172.7 cm; Wt 83.9 kg
[~2022-12-23 10:01] MED LIST changes: +ASPI-999 PO; +DENO60DI SQ; +LISI30TA5 PO; +METF-399 PO
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
[2022-12-23] MEDS ORDERED: NS IV 500 ML 500 ML IV STA (10:25)
[2022-12-23 10:32] LABS: BASOPHILS # (AUTO) 0.1 10^3/uL (0.0-0.1); BASOPHILS % (AUTO) 1 % (0-10); EOSINOPHILS # (AUTO) 0.2 10^3/uL (0.0-0.3); EOSINOPHILS % (AUTO) 2 % (0-10); HEMATOCRIT 38 % (40-54); HEMOGLOBIN 13.5 g/dL (13.3-17.7); LYMPHOCYTES % (AUTO) 11 % (12-44); MEAN CORPUSCULAR HEMOGLOBIN 32 pg (25-34); MEAN CORPUSCULAR HGB CONC 36 g/dL (32-36); MEAN CORPUSCULAR VOLUME 91 fL (80-99); MEAN PLATELET VOLUME 9.3 fL (9.0-12.2); MONOCYTES # (AUTO) 0.6 10^3/uL (0.0-1.0); MONOCYTES % (AUTO) 7 % (0-12); NEUTROPHILS # (AUTO) 7.7 10^3/uL (1.8-7.8); NEUTROPHILS % (AUTO) 79 % (42-75); PLATELET COUNT 322 10^3/uL (130-400); WHITE BLOOD COUNT 9.8 10^3/uL (4.3-11.0)
[2022-12-23 10:36] LABS: ALBUMIN 4.3 GM/DL (3.2-4.5)
[2022-12-23 10:37] LABS: CHLORIDE 100 MMOL/L (98-107); POTASSIUM 4.3 MMOL/L (3.6-5.0); SODIUM 136 MMOL/L (135-145)
[2022-12-23 10:39] LABS: GLUCOSE 197 MG/DL (70-105); TOTAL PROTEIN 7.1 GM/DL (6.4-8.2)
[2022-12-23 10:40] LABS: CARBON DIOXIDE 21 MMOL/L (21-32)
[2022-12-23 10:41] LABS: BILIRUBIN,TOTAL 1.1 MG/DL (0.1-1.0)
[2022-12-23 10:42] LABS: ALKALINE PHOSPHATASE 69 U/L (40-136)
[2022-12-23 10:43] LABS: CREATININE SERUM 0.99 MG/DL (0.60-1.30); GFR ESTIMATED 78
[2022-12-23 10:44] LABS: BUN/CREATININE RATIO 17
[2022-12-23 10:45] LABS: ALANINE AMINOTRANSFERASE 45 U/L (0-55)
--- NOTE | 2022-12-23 11:07 | Diagnostic Imaging Report ---
INDICATION: Sudden onset dizziness TECHNIQUE: Routine non contrast-enhanced axial images were obtained from the skull base to the vertex. Auto Exposure Controls were utilized during the CT exam to meet ALARA standards for radiation dose reduction COMPARISON: 03/25/2021 FINDINGS: The ventricles and cortical sulci are diffusely prominent, compatible with age-related volume loss. There are confluent areas of abnormal, low attenuation in the periventricular white matter. This is consistent with chronic small vessel ischemic changes. There is no midline shift or mass-effect. No acute intra-axial hemorrhage is seen. There are no abnormal areas of increased or decreased density to suggest acute hemorrhage or edema. No extra-axial masses or collections are present. The bony calvarium is intact. The visualized paranasal sinuses are unremarkable. The mastoid air cells are clear. IMPRESSION: 1. No acute intracranial abnormality. No CT evidence of mass, acute infarct or intracranial hemorrhage. 2. Chronic small vessel ischemic changes in the deep white matter. Dictated by: Dictated on workstation # [id number]
[2022-12-23] MEDS ORDERED: MECLIZINE 25 MG (ANTIVERT) TAB PO ONE (11:30)
[2022-12-23] MEDS ORDERED: GADOTERATE 0.5 MMOL/ML (CLARISCAN) 20 ML VIAL IV ONE (12:00)
[2022-12-23] MEDS ORDERED: PANT20TA2 PO (13:59)
[2022-12-23] MEDS ORDERED: DEXA4TAB PO (13:59)
[2022-12-23 15:02] VITALS: BP 129/64
--- NOTE | 2022-12-23 17:49 | Diagnostic Imaging Report ---
CLINICAL INDICATION: Patient with squamous cell carcinoma with involvement of the left orbit and perineural extension. EXAM: MRI of the brain performed without and with 16 cc of Clariscan IV contrast. Sequences include axial DWI, ADC map, coronal gradient echo, axial FLAIR, axial T1, axial T2, axial T1 post IV contrast whole brain, coronal T1 fat-sat post IV contrast whole brain, and sagittal T1 fat-sat post IV contrast whole brain. COMPARISON: MRI of the brain without contrast dated 01/01/2021. Head CT without contrast dated 12/23/2022. Outside MRI of the brain performed without and with IV contrast dated 10/25/2022 from [facility]. Images are loaded onto the PACS system. FINDINGS: This exam is predominantly compared to the most recent outside MRI of the brain from [facility]. There is interval progression of high T2 signal involving the roni and left brachium pontis region. There is no diffusion restriction seen in the region. There is interval increased size of the now 11 mm x 11 mm nodular area of enhancement measuring greatest axial dimension x 13 mm in craniocaudal dimension, involving the left side of roni, which correlates to this area of abnormal enhancement. This lesion is remeasured on the prior study at 8 mm x 8 mm x 8 mm (AP x Trans x CC). There is a roughly 10 mm x 8 mm (AP x Trans) area of high T2 signal with peripheral enhancement involving the medial superior aspect of the left orbit, which is in the region of the left trochlear eye muscle. There is also inflammation and fat stranding involving the intraconal and extraconal medial aspect of the left orbit. The inflammation appears to encroach upon the left intraorbital optic nerve near the apex displacing it slightly laterally. This lesion is measured on the axial T2 sequence on today's exam and the comparison study. Previously, this lesion measured 9 mm x 7 mm in AP x transverse dimensions. There are no other areas of abnormal IV contrast enhancement. There are multiple focal, patchy, and confluent areas of high T2 signal white matter changes involving both cerebral hemispheres and periventricular regions, likely related to chronic small vessel ischemic disease and leukoaraiosis. There is stable diffuse brain parenchymal volume loss. There is no hydrocephalus, brain herniation, or midline shift. Basal cisterns are unremarkable. The visualized portions of the lower el[place]a of Don vascular structures are unremarkable. The pituitary gland, sella, and suprasellar regions are unremarkable as visualized. There is minimal mucosal thickening involving the ethmoid sinus. There is a small amount of fluid involving the left mastoid air cells. IMPRESSION: 1: There is interval increased size of the enhancing mass involving the left side of the roni with progression of adjacent parenchymal edema involving the roni and left brachium pontis region. This area is concerning for metastatic disease. 2: There is interval increased size of a heterogeneous enhancing mass located in the medial superior aspect of the left orbit in the region of the left trochlear muscle. This area encroaches upon and displaces the intraorbital optic nerve laterally near the orbital apex. This is concerning for a metastatic lesion. 3: Again seen chronic small vessel ischemic disease and leukoaraiosis. Results of this report were discussed with Dr. Елена Cutler via the telephone on 12/23/2022 at 1319 hours. Dictated by: Dictated on workstation # [id number]
== END 2022-12-23 15:02 ==
LOC: EDUNIT# 10:01 → ER 10:07
DX: C72.59 Malignant neoplasm of other cranial nerves (principal); R00.1 Bradycardia, unspecified; Z79.899 Other long term (current) drug therapy; Z92.21 Personal history of antineoplastic chemotherapy
CPT/HCPCS: 36415; 70450; 70553; 80053; 84484; 85025; 93005

== ENCOUNTER → 2023-02-23 | Outpatient (CLI) | payer MEDICARE, OTHER ==
[~2023-02-23] MED LIST changes: +DEXA4TAB PO; +PANT20TA2 PO
== END ==
LOC: PREOP 05:35
PROVIDERS: ATTEND Surgery
DX: Z01.818 Encounter for other preprocedural examination (principal)

== ENCOUNTER 2023-03-02 07:07 | Day surgery (SDC) | payer MEDICARE, OTHER ==
[2023-03-02] VITALS (8 sets, daily range): BP systolic 134–148; BP diastolic 65–84
[2023-03-02] MEDS ORDERED: LACTATED RINGERS 1,000 ML IV PRN (07:15)
[2023-03-02] MEDS ORDERED: ceFAZolin INJECTION 2,000 MG in NS (IVPB) 50 ML 50 ML IV ONE (07:15)
[2023-03-02] MEDS ORDERED: LIDOCAINE/EPI 1%-1:100,000 (XYLOCAINE) 20ML ONE (07:19)
[2023-03-02] MEDS ORDERED: HEParin (CENTRAL IV FLUSH) 500 UNIT/5 ML SYR ONE (07:19)
[2023-03-02] MEDS ORDERED: 0.9% SODIUM CHLORIDE PF INJ 20 ML VIAL ONE (07:19)
[2023-03-02] MEDS ORDERED: PROPOFOL INJECTION 50 ML IV ONE (07:43)
[2023-03-02] MEDS ORDERED: fentaNYL INJ 100 MCG/2 ML AMP ONE (07:44)
[2023-03-02] MEDS ORDERED: NS (IVPB) 50 ML 50 ML ONE (07:47)
[2023-03-02] MEDS ORDERED: ceFAZolin INJECTION 2,000 MG ONE (07:47)
--- NOTE | 2023-03-02 08:29 | Discharge Inst-Simple/Standard ---
Discharge Inst-Standard Patient Instructions/Follow Up Plan of Care/Instructions/FU: 2 weeks Jimi Activity as Tolerated: No Discharge Diet: Regular Diet Other Inst to Patient Follow up Appt: Make appointment for 2 week. Instructions: No lifting greater than 10 pounds. No strenuous activity. May shower in 24 hours, no tub bath or soaking. Use incentive spirometer at home as directed. No Smoking Skin/Wound Care: You have special glue over your incision that will fall off on it's own. Ice pack over right chest and neck on 15 min and off 30 min and repeat for first 48 hours. This reduces swelling and discomfort. Symptoms to Report: Appetite Changes, Extremity Discoloration, Numbness/Tingling, Swelling Increased, Bleeding Excessive, Eyesight Changes, Pain Increased, Urine Color Change, Constipation(Persistent), Fever over 101 degree F, Pain/Pressure in chest, Urinating Difficulty, Cough Up/Vomit Blood, Heart Beat Irreg/Pounding, Pain/Pressure in jaw, Vaginal Bleeding Increase, Cramps in feet or legs, Lightheadedness, Pain/Pressure in shoulder, Diarrhea(Persistent), Memory Changes Suddenly, Questions/Concerns, Weight gain consecutive days, Dizziness/Fainting, Nausea/Vomiting, Shortness of Breath, Weight gain over 2 pounds If questions or concerns contact your physician Or seek help at emergency department. ROBERT ANN DO Mar 02, 2023 08:29
--- NOTE | 2023-03-02 08:31 | Progress Note-Post Operative ---
Post-Operative Progess Note Surgeon (s)/Mobile Marketing Specialist (s) Surgeon ROBERT ANN DO Mobile Marketing Specialist: na Pre-Operative Diagnosis VENOUS INSUFFICIENCY, SQUAMOUS CELL CARCINOMA Post-Operative Diagnosis same Procedure & Operative Findings Date of Procedure 03/02/23 Procedure Performed/Findings PROCEDURE: Right internal jugular port placement using ultrasound guidance. COMPLICATIONS: None. INDICATIONS: The patient is a 77 year old male with squamous cell carcinoma. Patient understands the risks and benefits of port placement and wished to proceed with the procedure. Consent was signed on the chart. PROCEDURE: The patient was taken to the operating suite, was prepped and draped in the sterile fashion. A surgical pause was performed. Ultrasound was used to locate the internal jugular vein. Once located anesthetic was infiltrated above it. Using micro-access kit, the right internal vein was accessed. Dark nonpulsatile blood was withdrawn. The wire was inserted. Fluoroscopy assured proper placement. The needle was removed. The micro-access dilator was advanced over the wire and the wire was removed. The regular wire was inserted and fluoroscopy assured proper placement. The wire was then secured. Local anesthetic was used to anesthetize from the neck for tunneling down to the right chest and for pocket creation. A 15 blade scalpel was used to make an incision over the right chest. Cautery was used to dissect down to the pectoral fascia. A pocket was created with blunt dissection. The dilator sheath was then advanced over the wire under fluoroscopy and the dilator and wire were removed. The [place]ong catheter was inserted through the sheath and the sheath was then removed. The [place] wire was removed. The catheter was then tunneled to the right chest pocket. Fluoroscopy was used to cut to length and this was then attached to the port which was then placed within the pocket. The port was then accessed without difficulty. It was then flushed with saline and then heparin. The subcutaneous tissues were then reapproximated using 3-0 Vicryl. The areas were then washed and dried. Skin Affix was placed over incision. The insertion point of the neck Skin Affix was placed over the incision. The patient tolerated the procedure well without complication and was taken to recovery room in stable condition. Chest x-ray is pending. Anesthesia Type mac c local Estimated Blood Loss Estimated blood loss (mL): minimal Specimens/Packing Specimens Removed ROBERT Tanner DO Mar 02, 2023 08:31
--- NOTE | 2023-03-02 08:33 | Anesthesia-General Post-Op ---
MAC Patient Condition Mental Status/LOC: Same as Preop Cardiovascular: Satisfactory Nausea/Vomiting: Absent Respiratory: Satisfactory Pain: Controlled Complications: Absent Post Op Complications Complications None Follow Up Care/Instructions Patient Instructions None needed. Anesthesiology Discharge Order Discharge Order Patient is doing well, no complaints, stable vital signs, no apparent adverse anesthesia problems. No complications reported per nursing. DIANNA FITZPATRICK CLAM SHUCKER Mar 02, 2023 08:33
[2023-03-02] MEDS ORDERED: MEPERIDINE (DEMEROL) INJ 50 MG/ML IVP ONE (08:45)
[2023-03-02] MEDS ORDERED: morphine INJ 10 MG/ML 1ML (SYR OR VIAL) IVP ONE (08:45)
[2023-03-02] MEDS ORDERED: ONDANSETRON 4 MG/2 ML (SDV) Z0FRAN IVP PRN (08:45)
[2023-03-02] MEDS ORDERED: fentaNYL INJ 100 MCG/2 ML AMP IVP ONE (08:45)
--- NOTE | 2023-03-02 08:49 | Diagnostic Imaging Report ---
Indication: Central line placement A right IJ tunneled port tip projects over the lower SVC in good alignment. No effusion or pneumothorax. Impression: No acute appearing abnormality. Dictated by: Dictated on workstation # [id number]
--- NOTE | 2023-03-02 11:18 | Diagnostic Imaging Report ---
Indication: Port-A-Cath placement Intraoperative fluoroscopy view obtained during Port-A-Cath placement surgery. Single view obtained, 14.1 seconds of fluoro time was used. 1.78 mGy of exposure. Intraoperative view demonstrates Port-A-Cath the right chest with catheter entering the right internal jugular vein, tip overlying the low SVC. Study is otherwise limited. IMPRESSION: Intraoperative view demonstrates Port-A-Cath placement as above. Dictated by: Dictated on workstation # [id number]
== END 2023-03-02 09:45 | disposition home or self-care (01) ==
LOC: SDC 07:07
PROVIDERS: ATTEND Surgery
DX: I87.2 Venous insufficiency (chronic) (peripheral) (principal); C44.92 Squamous cell carcinoma of skin, unspecified
CPT/HCPCS: 36561; 71045; 76000; 82947; 87081; C1788